=== PATIENT | male | born 1995 | race Caucasian/White ===

== ENCOUNTER 2016-08-15 09:01 | Emergency (ER) | payer OTHER ==
[~2016-08-15] VITALS: Ht 188 cm; Wt 90.9 kg
[2016-08-15 09:14] VITALS: BP 135/79; TEMP 97.6
[2016-08-15] MEDS ORDERED: AMOXICILLIN 8751 TAB PO (11:10)
[2016-08-15] MEDS ORDERED: NORCO 325 MG-51 TAB PO (11:14)
[2016-08-15 11:39] VITALS: PULSE 87
== END 2016-08-15 11:41 | disposition home or self-care (01) ==
LOC: COL.ER 09:01
DX: S92.531A Displaced fracture of distal phalanx of right lesser toe(s), initial encounter for closed fracture (principal); S91.114A Laceration without foreign body of right lesser toe(s) without damage to nail, initial encounter; W22.8XXA Striking against or struck by other objects, initial encounter